=== PATIENT | male | born 1930 | race Caucasian/White ===

== ENCOUNTER 2019-04-21 08:50 | Inpatient (IN) | payer MEDICARE, MEDICAID ==
[~2019-04-21] VITALS: Ht 165.1 cm; Wt 49.1 kg
[2019-04-21 09:31] LABS: BASOPHILS % (AUTO) 0.1 % (0.0-2.0); EOSINOPHILS % (AUTO) 0 % (1.0-6.0); HEMATOCRIT 37.2 % (41-53); HEMOGLOBIN 12.2 g/dL (13.5-17.5); LYMPHOCYTES # (AUTO) 0.6 K/uL (1.0-4.8); LYMPHOCYTES % (AUTO) 2.2 % (22.0-44.0); MEAN CORPUSCULAR HEMOGLOBIN 32.8 pg (26.0-34.0); MEAN CORPUSCULAR HGB CONC 32.8 G/dL (31.0-37.0); MEAN CORPUSCULAR VOLUME 100 fL (80-100); MONOCYTES # (AUTO) 0.7 K/uL (0.1-1.0); MONOCYTES % (AUTO) 2.4 % (2.0-9.0); NEUTROPHILS # (AUTO) 26.6 K/uL (1.8-7.7); PLATELET COUNT (AUTO) 101 K/uL (150-450); RED BLOOD CELL COUNT(AUTO) 3.72 MIL/uL (4.50-5.90); RED CELL DISTRIBUTION WIDTH 14.5 % (11.5-14.5)
[2019-04-21 09:36] LABS: NEUTROPHILS % (AUTO) 95.3 % (40.0-70.0)
[2019-04-21 09:49] LABS: INR 1.4 (0.9-1.1); LACTIC ACID 1.8 mmol/L (0.4-2.0); PROTHROMBIN TIME 14.1 SEC (9.4-11.6)
[2019-04-21 09:58] LABS: ALBUMIN 2.2 g/dL (3.4-5.0); BILIRUBIN,TOTAL 0.7 mg/dL (0.1-1.0); CALCIUM, TOTAL 10.8 mg/dL (8.8-10.5); CREATININE 5.41 mg/dL (0.60-1.30); POTASSIUM 4.8 mmol/L (3.5-5.1); TOTAL PROTEIN, SERUM 8.6 g/dL (6.4-8.2)
[2019-04-21 10:02] LABS: INFLUENZA TYPE A NEGATIVE FOR TYPE A (NEGATIVE); INFLUENZA TYPE B NEGATIVE FOR TYPE B (NEGATIVE)
[2019-04-21] MEDS ORDERED: PIPERACILLIN SODIUM/TAZOBACTAM 4.5 GM in DEXTROSE 5%-WATER 100 ML IV ONE (10:15)
[2019-04-21] MEDS ORDERED: SODIUM CHLORIDE 0.9% 2,050 ML IV ONE (10:15)
[2019-04-21] MEDS ORDERED: VANCOMYCIN HCL 1 GM/D5% WATER 200 ML IV ONE (10:15)
[2019-04-21] MEDS ORDERED: ACETAMINOPHEN 325 MG TABLET PO PRN (11:00)
[2019-04-21] MEDS ORDERED: VANCOMYCIN HCL 1 GM/D5% WATER 200 ML IV PRN (11:15)
[2019-04-21 11:59] LABS: INR 1.4 (0.9-1.1); PROTHROMBIN TIME 14.6 SEC (9.4-11.6)
[2019-04-21 16:55] VITALS: BP 129/79
[2019-04-21] MEDS: PIPERACILLIN SODIUM/TAZOBACTAM 2.25 GM in DEXTROSE 5%-WATER 50 ML IV SCH ×2 (18:14→22:18)
[2019-04-21 19:30] VITALS: BP 124/68
[2019-04-21] MEDS: DOCUSATE SODIUM 100 MG CAPSULE PO SCH (21:54)
[2019-04-21] MEDS: SODIUM CHLORIDE 0.9% 1,000 ML IV SCH (22:17)
[2019-04-22 00:11] VITALS: BP 100/61
[2019-04-22] MEDS: PIPERACILLIN SODIUM/TAZOBACTAM 2.25 GM in DEXTROSE 5%-WATER 50 ML IV SCH ×3 (05:05→16:02)
[2019-04-22 05:34] VITALS: BP 101/87
[2019-04-22 07:20] LABS: BASOPHILS % (AUTO) 0.1 % (0.0-2.0); EOSINOPHILS % (AUTO) 0 % (1.0-6.0); HEMATOCRIT 32.7 % (41-53); HEMOGLOBIN 10.7 g/dL (13.5-17.5); LYMPHOCYTES # (AUTO) 0.4 K/uL (1.0-4.8); LYMPHOCYTES % (AUTO) 1.5 % (22.0-44.0); MEAN CORPUSCULAR HEMOGLOBIN 32.3 pg (26.0-34.0); MEAN CORPUSCULAR HGB CONC 32.6 G/dL (31.0-37.0); MEAN CORPUSCULAR VOLUME 99 fL (80-100); MONOCYTES # (AUTO) 0.8 K/uL (0.1-1.0); MONOCYTES % (AUTO) 2.7 % (2.0-9.0); PLATELET COUNT (AUTO) 103 K/uL (150-450); RED CELL DISTRIBUTION WIDTH 14.4 % (11.5-14.5)
[2019-04-22 07:21] LABS: NEUTROPHILS % (AUTO) 95.7 % (40.0-70.0)
[2019-04-22 07:50] LABS: CALCIUM, TOTAL 10.3 mg/dL (8.8-10.5); CREATININE 5.14 mg/dL (0.60-1.30); MAGNESIUM 2.8 mg/dL (1.80-2.40); PHOSPHORUS 5.3 mg/dL (2.5-4.9); POTASSIUM 4.2 mmol/L (3.5-5.1)
[2019-04-22] MEDS: DOCUSATE SODIUM 100 MG CAPSULE PO SCH ×2 (08:30→21:40)
[2019-04-22] MEDS: FAMOTIDINE 20 MG TABLET PO SCH (08:30)
[2019-04-22] MEDS: SODIUM CHLORIDE 0.9% 1,000 ML IV SCH (08:30)
[2019-04-22 08:44] VITALS: BP 100/70
[2019-04-22 09:20] LABS: APPEARANCE,URINE CLOUDY (CLEAR); BILIRUBIN,URINE NEGATIVE (NEGATIVE); GLUCOSE, URINE (UA) NEGATIVE (NEGATIVE); KETONES,URINE NEGATIVE (NEGATIVE); LEUKOCYTE ESTERASE ,URINE LARGE (NEGATIVE); NITRATE,URINE NEGATIVE (NEGATIVE); OCCULT BLOOD,URINE LARGE (NEGATIVE); PH,URINE 5.5 (5.0-8.0); PROTEIN,URINE TRACE (NEGATIVE); UROBILINOGEN,URINE 0.2 mg/dL (<=1.0)
[2019-04-22 09:22] LABS: CREATININE,URINE RANDOM 54.4 mg/dL (30.0-125.0); SODIUM,URINE RANDOM 26 mmol/l (20-110); UREA NITROGEN,URINE RANDOM 657 mg/dL (350-1000)
[2019-04-22 09:43] LABS: BACTERIA,URINE Few /HPF (None Seen); RBC,URINE 51-100 /HPF (0-2); SQUAMOUS EPITHELIAL CELL,UR None Seen /LPF (None Seen); WBC,URINE 51-100 /HPF (0-5)
[2019-04-22] MEDS ORDERED: VANCOMYCIN HCL 1 GM/D5% WATER 200 ML IV ONE (10:00)
[2019-04-22] MEDS: TAMSULOSIN HCL 0.4 MG CAPSULE PO SCH ×2 (10:30→21:40)
[2019-04-22 12:01] VITALS: BP 98/53
[2019-04-22] MEDS: HEPARIN SODIUM 25000 UNITS/D5W 250 ML IV PRN (12:12)
[2019-04-22] MEDS: HEPARIN SODIUM,PORCINE 5,000 UNITS/ML VIAL IVP PRN (12:13)
[2019-04-22] MEDS: SODIUM BICARBONATE 75 MEQ in DEXTROSE 5%-WATER 1,000 ML IV SCH (16:06)
[2019-04-22 16:26] VITALS: BP 100/58
[2019-04-22 20:18] VITALS: BP 142/62
[2019-04-23] VITALS (7 sets, daily range): BP systolic 96–130; BP diastolic 54–71
[2019-04-23] MEDS ORDERED: ADENOSINE 3 MG/ML 2 ML VIAL IVP ONE ×2 (02:30)
[2019-04-23] MEDS: PIPERACILLIN SODIUM/TAZOBACTAM 2.25 GM in DEXTROSE 5%-WATER 50 ML IV SCH ×2 (05:16→05:17)
[2019-04-23] MEDS: SODIUM BICARBONATE 75 MEQ in DEXTROSE 5%-WATER 1,000 ML IV SCH (06:51)
[2019-04-23 08:08] LABS: BASOPHILS % (AUTO) 0.2 % (0.0-2.0); EOSINOPHILS % (AUTO) 0.6 % (1.0-6.0); HEMATOCRIT 30.1 % (41-53); LYMPHOCYTES # (AUTO) 1.2 K/uL (1.0-4.8); LYMPHOCYTES % (AUTO) 7.1 % (22.0-44.0); MEAN CORPUSCULAR HEMOGLOBIN 32.8 pg (26.0-34.0); MEAN CORPUSCULAR HGB CONC 33.2 G/dL (31.0-37.0); MEAN CORPUSCULAR VOLUME 99 fL (80-100); MONOCYTES % (AUTO) 5.8 % (2.0-9.0); NEUTROPHILS # (AUTO) 14.6 K/uL (1.8-7.7); PLATELET COUNT (AUTO) 129 K/uL (150-450); RED BLOOD CELL COUNT(AUTO) 3.04 MIL/uL (4.50-5.90); RED CELL DISTRIBUTION WIDTH 14.4 % (11.5-14.5)
[2019-04-23 08:17] LABS: NEUTROPHILS % (AUTO) 86.3 % (40.0-70.0)
[2019-04-23] MEDS: DOCUSATE SODIUM 100 MG CAPSULE PO SCH ×2 (09:00→21:00)
[2019-04-23] MEDS: TAMSULOSIN HCL 0.4 MG CAPSULE PO SCH ×2 (09:00→21:00)
[2019-04-23] MEDS: FAMOTIDINE 20 MG TABLET PO SCH (09:00)
[2019-04-23 09:23] LABS: ALBUMIN 1.6 g/dL (3.4-5.0); BILIRUBIN,TOTAL 0.3 mg/dL (0.1-1.0); CALCIUM, TOTAL 10.7 mg/dL (8.8-10.5); CREATININE 1.72 mg/dL (0.60-1.30); FREE T4 (FREE THYROXINE) 1.29 ng/dL (0.76-1.46); MAGNESIUM 2.6 mg/dL (1.80-2.40); PHOSPHORUS 3.2 mg/dL (2.5-4.9); POTASSIUM 3.4 mmol/L (3.5-5.1); THYROID STIMULATING HORMONE 1.93 uIU/mL (0.36-3.74); TOTAL PROTEIN, SERUM 6.8 g/dL (6.4-8.2); VANCOMYCIN,RANDOM 12.2 mcg/mL (25.0-50.0)
[2019-04-23] MEDS ORDERED: *CLINICAL-LEVOFLOXACIN IVPB DOSING CLINICAL ONE (10:45)
[2019-04-23] MEDS ORDERED: SODIUM CHLORIDE 0.9% 250 ML IV ONE (12:45)
[2019-04-23] MEDS: LEVOFLOXACIN 250 MG/D5% WATER 50 ML IV SCH (12:48)
[2019-04-23] MEDS: DEXTROSE 5%-0.45% SODIUM CHL 1,000 ML IV SCH (13:36)
[2019-04-23] MEDS: HEPARIN SODIUM 25000 UNITS/D5W 250 ML IV PRN (13:40)
[2019-04-23] MEDS ORDERED: POTASSIUM CHL 10 MEQ/WATER 50 ML IV ONE (15:00)
[2019-04-24 03:57] VITALS: BP 123/89
[2019-04-24] MEDS: DEXTROSE 5%-0.45% SODIUM CHL 1,000 ML IV SCH (05:44)
[2019-04-24 08:19] LABS: BASOPHILS % (AUTO) 0.1 % (0.0-2.0); EOSINOPHILS % (AUTO) 2.3 % (1.0-6.0); HEMATOCRIT 31.7 % (41-53); HEMOGLOBIN 10.6 g/dL (13.5-17.5); LYMPHOCYTES # (AUTO) 1.5 K/uL (1.0-4.8); LYMPHOCYTES % (AUTO) 12.9 % (22.0-44.0); MEAN CORPUSCULAR HEMOGLOBIN 33.3 pg (26.0-34.0); MEAN CORPUSCULAR HGB CONC 33.3 G/dL (31.0-37.0); MEAN CORPUSCULAR VOLUME 100 fL (80-100); MONOCYTES # (AUTO) 0.7 K/uL (0.1-1.0); MONOCYTES % (AUTO) 6.2 % (2.0-9.0); NEUTROPHILS # (AUTO) 9.2 K/uL (1.8-7.7); NEUTROPHILS % (AUTO) 78.5 % (40.0-70.0); PLATELET COUNT (AUTO) 166 K/uL (150-450); RED BLOOD CELL COUNT(AUTO) 3.17 MIL/uL (4.50-5.90); RED CELL DISTRIBUTION WIDTH 14.9 % (11.5-14.5)
[2019-04-24 08:43] LABS: CALCIUM, TOTAL 10.4 mg/dL (8.8-10.5); CREATININE 1.15 mg/dL (0.60-1.30); MAGNESIUM 2.1 mg/dL (1.80-2.40); PHOSPHORUS 1.8 mg/dL (2.5-4.9)
[2019-04-24 08:47] VITALS: BP 115/59
[2019-04-24] MEDS: FAMOTIDINE 20 MG TABLET PO SCH (09:00)
[2019-04-24] MEDS: DOCUSATE SODIUM 100 MG CAPSULE PO SCH ×2 (09:00→21:00)
[2019-04-24] MEDS: TAMSULOSIN HCL 0.4 MG CAPSULE PO SCH ×2 (09:00→21:00)
[2019-04-24 09:05] LABS: POTASSIUM 2.7 mmol/L (3.5-5.1)
[2019-04-24] MEDS ORDERED: POTASSIUM CHLORIDE 20 MEQ ER TABLET PO ONE (09:15)
[2019-04-24] MEDS: POTASSIUM CHL 10 MEQ/WATER 50 ML IV SCH ×3 (10:11→22:50)
[2019-04-24] MEDS: LEVOFLOXACIN 250 MG/D5% WATER 50 ML IV SCH (10:11)
[2019-04-24] MEDS: DEXTROSE 5%-WATER 1,000 ML IV SCH ×2 (10:45→20:51)
[2019-04-24 12:35] VITALS: BP 136/59
[2019-04-24 15:24] VITALS: BP 134/68
[2019-04-24 22:00] LABS: ANION GAP 8 mmol/L (8-16); CALCIUM, TOTAL 10.2 mg/dL (8.8-10.5); CARBON DIOXIDE 28 mmol/L (22-29); CHLORIDE 121 mmol/L (98-107); GLUCOSE,RANDOM 109 mg/dL (70-110); PHOSPHORUS 2.3 mg/dL (2.5-4.9); SODIUM SERUM 157 mmol/L (136-145); UREA NITROGEN, BLOOD 29 mg/dL (7-18)
[2019-04-24 22:04] LABS: GLOMERULAR FILTR. RATE CALC > 60 mL/min (>60); POTASSIUM 2.9 mmol/L (3.5-5.1)
[2019-04-24 22:18] VITALS: BP 126/70
[2019-04-25 00:44] VITALS: BP 129/70
[2019-04-25] MEDS: POTASSIUM CHL 10 MEQ/WATER 50 ML IV SCH ×5 (02:30→11:26)
[2019-04-25] MEDS: DEXTROSE 5%-WATER 1,000 ML IV SCH ×3 (02:52→18:53)
[2019-04-25 05:34] VITALS: BP 139/87
[2019-04-25 06:52] LABS: BASOPHILS % (AUTO) 0.1 % (0.0-2.0); EOSINOPHILS % (AUTO) 3.7 % (1.0-6.0); HEMATOCRIT 31.1 % (41-53); HEMOGLOBIN 10.2 g/dL (13.5-17.5); LYMPHOCYTES # (AUTO) 1.6 K/uL (1.0-4.8); LYMPHOCYTES % (AUTO) 12.9 % (22.0-44.0); MEAN CORPUSCULAR HEMOGLOBIN 32.7 pg (26.0-34.0); MEAN CORPUSCULAR HGB CONC 32.6 G/dL (31.0-37.0); MEAN CORPUSCULAR VOLUME 100 fL (80-100); MONOCYTES # (AUTO) 0.8 K/uL (0.1-1.0); MONOCYTES % (AUTO) 6.4 % (2.0-9.0); NEUTROPHILS # (AUTO) 9.8 K/uL (1.8-7.7); NEUTROPHILS % (AUTO) 76.9 % (40.0-70.0); PLATELET COUNT (AUTO) 184 K/uL (150-450); RED CELL DISTRIBUTION WIDTH 15.1 % (11.5-14.5)
[2019-04-25 07:19] LABS: CHLORIDE 125 mmol/L (98-107); POTASSIUM 3.2 mmol/L (3.5-5.1); SODIUM SERUM 157 mmol/L (136-145)
[2019-04-25 07:29] LABS: B-TYPE NATRIURETIC PEPTIDE 284 pg/mL (0-100)
[2019-04-25 07:31] LABS: ANION GAP 2 mmol/L (8-16); CALCIUM, TOTAL 10.1 mg/dL (8.8-10.5); CARBON DIOXIDE 30 mmol/L (22-29); CREATININE 1.07 mg/dL (0.60-1.30); GLOMERULAR FILTR. RATE CALC > 60 mL/min (>60); GLUCOSE,RANDOM 107 mg/dL (70-110); PHOSPHORUS 2.2 mg/dL (2.5-4.9); UREA NITROGEN, BLOOD 28 mg/dL (7-18)
[2019-04-25 07:45] VITALS: BP 137/91
[2019-04-25] MEDS ORDERED: POTASSIUM PHOS,M-BASIC-D-BASIC 20 MEQ in DEXTROSE 5%-WATER 100 ML IV ONE (08:15)
[2019-04-25] MEDS: DOCUSATE SODIUM 100 MG CAPSULE PO SCH ×2 (09:00→20:29)
[2019-04-25] MEDS: FAMOTIDINE 20 MG TABLET PO SCH (09:00)
[2019-04-25] MEDS: TAMSULOSIN HCL 0.4 MG CAPSULE PO SCH ×2 (09:00→20:30)
[2019-04-25] MEDS: LEVOFLOXACIN 250 MG/D5% WATER 50 ML IV SCH (10:07)
[2019-04-25] MEDS: THIAMINE HCL 100 MG/ML 2ML VIAL IVP SCH (12:33)
[2019-04-25 12:56] VITALS: BP 115/82
[2019-04-25 15:55] VITALS: BP 127/81
[2019-04-25 16:16] LABS: ANION GAP 8 mmol/L (8-16); CALCIUM, TOTAL 9.8 mg/dL (8.8-10.5); CARBON DIOXIDE 28 mmol/L (22-29); CHLORIDE 123 mmol/L (98-107); CREATININE 1.03 mg/dL (0.60-1.30); GLUCOSE,RANDOM 109 mg/dL (70-110); PHOSPHORUS 3.1 mg/dL (2.5-4.9); POTASSIUM 3.7 mmol/L (3.5-5.1); SODIUM SERUM 159 mmol/L (136-145); UREA NITROGEN, BLOOD 25 mg/dL (7-18)
[2019-04-25 16:17] LABS: GLOMERULAR FILTR. RATE CALC > 60 mL/min (>60)
[2019-04-25 19:50] VITALS: BP 118/70
[2019-04-25 22:01] LABS: ANION GAP 5 mmol/L (8-16); CALCIUM, TOTAL 9.5 mg/dL (8.8-10.5); CARBON DIOXIDE 30 mmol/L (22-29); CHLORIDE 121 mmol/L (98-107); CREATININE 1.08 mg/dL (0.60-1.30); GLOMERULAR FILTR. RATE CALC > 60 mL/min (>60); GLUCOSE,RANDOM 85 mg/dL (70-110); POTASSIUM 3.2 mmol/L (3.5-5.1); SODIUM SERUM 156 mmol/L (136-145); UREA NITROGEN, BLOOD 22 mg/dL (7-18)
[2019-04-26 00:20] VITALS: BP 104/76
[2019-04-26] MEDS: DEXTROSE 5%-WATER 1,000 ML IV SCH ×3 (02:35→21:33)
[2019-04-26 04:30] VITALS: BP 120/69
[2019-04-26 07:04] LABS: ANION GAP 3 mmol/L (8-16); CALCIUM, TOTAL 9.3 mg/dL (8.8-10.5); CARBON DIOXIDE 33 mmol/L (22-29); CHLORIDE 117 mmol/L (98-107); CREATININE 0.97 mg/dL (0.60-1.30); GLUCOSE,RANDOM 89 mg/dL (70-110); PHOSPHORUS 2.9 mg/dL (2.5-4.9); POTASSIUM 3.3 mmol/L (3.5-5.1); SODIUM SERUM 153 mmol/L (136-145); UREA NITROGEN, BLOOD 19 mg/dL (7-18)
[2019-04-26 07:08] LABS: GLOMERULAR FILTR. RATE CALC > 60 mL/min (>60)
[2019-04-26 08:50] VITALS: BP 123/68
[2019-04-26] MEDS: DOCUSATE SODIUM 100 MG CAPSULE PO SCH ×2 (09:00→21:00)
[2019-04-26] MEDS: TAMSULOSIN HCL 0.4 MG CAPSULE PO SCH ×2 (09:00→21:00)
[2019-04-26] MEDS: FAMOTIDINE 20 MG TABLET PO SCH (09:00)
[2019-04-26] MEDS: THIAMINE HCL 100 MG/ML 2ML VIAL IVP SCH (09:02)
[2019-04-26] MEDS: HEPARIN SODIUM,PORCINE 5,000 UNITS/ML VIAL IVP PRN (10:16)
[2019-04-26] MEDS ORDERED: MAGNESIUM SULFATE 3 GM in DEXTROSE 5%-WATER 100 ML IV ONE (11:30)
[2019-04-26] MEDS: LEVOFLOXACIN 250 MG/D5% WATER 50 ML IV SCH (11:35)
[2019-04-26 12:00] VITALS: BP 126/70
[2019-04-26] MEDS: POTASSIUM CHL 10 MEQ/WATER 50 ML IV SCH ×4 (12:24→15:45)
[2019-04-26] MEDS: HEPARIN SODIUM 25000 UNITS/D5W 250 ML IV PRN (15:46)
[2019-04-26 15:52] VITALS: BP 109/68
[2019-04-26 20:38] VITALS: BP 137/71
[2019-04-27] VITALS (7 sets, daily range): BP systolic 106–129; BP diastolic 54–69
[2019-04-27] MEDS: DEXTROSE 5%-WATER 1,000 ML IV SCH (08:34)
[2019-04-27] MEDS: THIAMINE HCL 100 MG/ML 2ML VIAL IVP SCH (08:34)
[2019-04-27] MEDS: FAMOTIDINE 20 MG TABLET PO SCH (09:00)
[2019-04-27] MEDS: TAMSULOSIN HCL 0.4 MG CAPSULE PO SCH ×2 (09:00→21:00)
[2019-04-27] MEDS: DOCUSATE SODIUM 100 MG CAPSULE PO SCH ×2 (09:00→21:00)
[2019-04-27] MEDS: LEVOFLOXACIN 250 MG/D5% WATER 50 ML IV SCH (11:00)
[2019-04-27 12:14] LABS: BASOPHILS % (AUTO) 0.4 % (0.0-2.0); EOSINOPHILS % (AUTO) 6.1 % (1.0-6.0); HEMATOCRIT 33.9 % (41-53); HEMOGLOBIN 11.1 g/dL (13.5-17.5); LYMPHOCYTES # (AUTO) 1.7 K/uL (1.0-4.8); LYMPHOCYTES % (AUTO) 13.1 % (22.0-44.0); MEAN CORPUSCULAR HEMOGLOBIN 32.7 pg (26.0-34.0); MEAN CORPUSCULAR HGB CONC 32.7 G/dL (31.0-37.0); MEAN CORPUSCULAR VOLUME 100 fL (80-100); MONOCYTES # (AUTO) 0.4 K/uL (0.1-1.0); MONOCYTES % (AUTO) 3.5 % (2.0-9.0); NEUTROPHILS # (AUTO) 9.8 K/uL (1.8-7.7); NEUTROPHILS % (AUTO) 76.9 % (40.0-70.0); PLATELET COUNT (AUTO) 165 K/uL (150-450); RED BLOOD CELL COUNT(AUTO) 3.39 MIL/uL (4.50-5.90); RED CELL DISTRIBUTION WIDTH 15.2 % (11.5-14.5)
[2019-04-27 12:35] LABS: ANION GAP 6 mmol/L (8-16); CALCIUM, TOTAL 9.5 mg/dL (8.8-10.5); CARBON DIOXIDE 28 mmol/L (22-29); CHLORIDE 107 mmol/L (98-107); GLUCOSE,RANDOM 90 mg/dL (70-110); PHOSPHORUS 2.7 mg/dL (2.5-4.9); POTASSIUM 3.1 mmol/L (3.5-5.1); SODIUM SERUM 141 mmol/L (136-145); UREA NITROGEN, BLOOD 14 mg/dL (7-18)
[2019-04-27 12:36] LABS: GLOMERULAR FILTR. RATE CALC > 60 mL/min (>60)
[2019-04-27] MEDS ORDERED: POTASSIUM CHLORIDE 20 MEQ ER TABLET PO PRN (13:00)
[2019-04-27] MEDS: SODIUM CHLORIDE 0.9% 1,000 ML IV SCH (13:36)
[2019-04-27] MEDS: POTASSIUM CHL 10 MEQ/WATER 50 ML IV PRN ×6 (13:41→23:50)
[2019-04-27] MEDS: HEPARIN SODIUM,PORCINE 5,000 UNITS/ML VIAL IVP PRN (13:56)
[2019-04-27] MEDS: HEPARIN SODIUM 25000 UNITS/D5W 250 ML IV PRN ×2 (19:59→21:12)
[2019-04-28 04:21] VITALS: BP 113/73
[2019-04-28] MEDS: HEPARIN SODIUM 25000 UNITS/D5W 250 ML IV PRN ×2 (05:03→23:21)
[2019-04-28] MEDS: POTASSIUM CHL 10 MEQ/WATER 50 ML IV PRN ×2 (05:04→06:04)
[2019-04-28] MEDS: SODIUM CHLORIDE 0.9% 1,000 ML IV SCH (05:31)
[2019-04-28 08:46] VITALS: BP 144/59
[2019-04-28] MEDS: FAMOTIDINE 20 MG TABLET PO SCH (09:12)
[2019-04-28] MEDS: THIAMINE HCL 100 MG/ML 2ML VIAL IVP SCH (09:12)
[2019-04-28] MEDS: TAMSULOSIN HCL 0.4 MG CAPSULE PO SCH ×2 (09:12→21:03)
[2019-04-28] MEDS: DOCUSATE SODIUM 100 MG CAPSULE PO SCH ×2 (09:12→21:03)
[2019-04-28 11:37] LABS: BASOPHILS % (AUTO) 0.6 % (0.0-2.0); EOSINOPHILS % (AUTO) 3.5 % (1.0-6.0); HEMATOCRIT 35.4 % (41-53); HEMOGLOBIN 11.4 g/dL (13.5-17.5); LYMPHOCYTES # (AUTO) 1.4 K/uL (1.0-4.8); LYMPHOCYTES % (AUTO) 11.9 % (22.0-44.0); MEAN CORPUSCULAR HEMOGLOBIN 31.8 pg (26.0-34.0); MEAN CORPUSCULAR VOLUME 99 fL (80-100); MONOCYTES # (AUTO) 0.4 K/uL (0.1-1.0); MONOCYTES % (AUTO) 3.5 % (2.0-9.0); NEUTROPHILS # (AUTO) 9.4 K/uL (1.8-7.7); NEUTROPHILS % (AUTO) 80.5 % (40.0-70.0); PLATELET COUNT (AUTO) 199 K/uL (150-450); RED BLOOD CELL COUNT(AUTO) 3.57 MIL/uL (4.50-5.90); RED CELL DISTRIBUTION WIDTH 15.1 % (11.5-14.5)
[2019-04-28 11:47] VITALS: BP 118/75
[2019-04-28] MEDS ORDERED: LEVOFLOXACIN 250 MG TABLET PO SCH (12:30)
[2019-04-28 16:15] VITALS: BP 102/65
[2019-04-28 20:22] VITALS: BP 104/66
[2019-04-28] MEDS: HEPARIN SODIUM,PORCINE 5,000 UNITS/ML VIAL IVP PRN (23:22)
[2019-04-29] VITALS (7 sets, daily range): BP systolic 99–115; BP diastolic 54–76
[2019-04-29] MEDS: SODIUM CHLORIDE 0.9% 1,000 ML IV SCH (06:30)
[2019-04-29] MEDS: THIAMINE HCL 100 MG/ML 2ML VIAL IVP SCH (09:25)
[2019-04-29] MEDS: DOCUSATE SODIUM 100 MG CAPSULE PO SCH ×2 (09:25→20:14)
[2019-04-29] MEDS: FAMOTIDINE 20 MG TABLET PO SCH (09:25)
[2019-04-29] MEDS: TAMSULOSIN HCL 0.4 MG CAPSULE PO SCH ×2 (09:25→20:14)
[2019-04-29 11:30] LABS: ANION GAP 4 mmol/L (8-16); CALCIUM, TOTAL 9.1 mg/dL (8.8-10.5); CARBON DIOXIDE 29 mmol/L (22-29); CHLORIDE 111 mmol/L (98-107); GLUCOSE,RANDOM 127 mg/dL (70-110); POTASSIUM 3.8 mmol/L (3.5-5.1); SODIUM SERUM 144 mmol/L (136-145); UREA NITROGEN, BLOOD 16 mg/dL (7-18)
[2019-04-29 11:37] LABS: GLOMERULAR FILTR. RATE CALC > 60 mL/min (>60)
[2019-04-29] MEDS: NYSTATIN 500,000 UNITS/5 ML SUSPENSION UDCUP PO SCH ×2 (18:30→23:59)
[2019-04-30 03:15] VITALS: BP 99/64
[2019-04-30] MEDS: HEPARIN SODIUM 25000 UNITS/D5W 250 ML IV PRN (06:09)
[2019-04-30] MEDS: NYSTATIN 500,000 UNITS/5 ML SUSPENSION UDCUP PO SCH ×3 (06:11→17:40)
[2019-04-30 07:01] LABS: BASOPHILS % (AUTO) 0.5 % (0.0-2.0); EOSINOPHILS % (AUTO) 2.7 % (1.0-6.0); HEMATOCRIT 30.5 % (41-53); HEMOGLOBIN 10.1 g/dL (13.5-17.5); LYMPHOCYTES # (AUTO) 1.5 K/uL (1.0-4.8); LYMPHOCYTES % (AUTO) 13.7 % (22.0-44.0); MEAN CORPUSCULAR HEMOGLOBIN 32.8 pg (26.0-34.0); MEAN CORPUSCULAR HGB CONC 33.1 G/dL (31.0-37.0); MEAN CORPUSCULAR VOLUME 99 fL (80-100); MONOCYTES # (AUTO) 0.5 K/uL (0.1-1.0); MONOCYTES % (AUTO) 4.6 % (2.0-9.0); NEUTROPHILS # (AUTO) 8.7 K/uL (1.8-7.7); NEUTROPHILS % (AUTO) 78.5 % (40.0-70.0); PLATELET COUNT (AUTO) 186 K/uL (150-450); RED BLOOD CELL COUNT(AUTO) 3.08 MIL/uL (4.50-5.90); RED CELL DISTRIBUTION WIDTH 15.3 % (11.5-14.5)
[2019-04-30 07:26] LABS: ANION GAP 3 mmol/L (8-16); CALCIUM, TOTAL 9.3 mg/dL (8.8-10.5); CARBON DIOXIDE 31 mmol/L (22-29); CHLORIDE 112 mmol/L (98-107); CREATININE 0.87 mg/dL (0.60-1.30); GLUCOSE,RANDOM 93 mg/dL (70-110); POTASSIUM 3.3 mmol/L (3.5-5.1); SODIUM SERUM 146 mmol/L (136-145); UREA NITROGEN, BLOOD 13 mg/dL (7-18)
[2019-04-30 07:27] LABS: GLOMERULAR FILTR. RATE CALC > 60 mL/min (>60)
[2019-04-30] MEDS: HEPARIN SODIUM,PORCINE 5,000 UNITS/ML VIAL IVP PRN (07:28)
[2019-04-30 07:58] VITALS: BP 120/61
[2019-04-30] MEDS: THIAMINE HCL 100 MG/ML 2ML VIAL IVP SCH (08:27)
[2019-04-30] MEDS: FAMOTIDINE 20 MG TABLET PO SCH (08:28)
[2019-04-30] MEDS: TAMSULOSIN HCL 0.4 MG CAPSULE PO SCH (08:28)
[2019-04-30] MEDS: DOCUSATE SODIUM 100 MG CAPSULE PO SCH (08:33)
[2019-04-30] MEDS ORDERED: LEVOFLOXACIN 750 MG TABLET PO SCH (09:00)
[2019-04-30] MEDS ORDERED: APIXABAN 5 MG TABLET PO SCH (10:15)
[2019-04-30 11:05] VITALS: BP 114/77
[2019-04-30] MEDS ORDERED: DOCU-275 PO (13:22)
[2019-04-30] MEDS ORDERED: APIX5TAB PO (13:22)
[2019-04-30] MEDS ORDERED: FAMO20 PO (13:23)
[2019-04-30] MEDS ORDERED: NYST100026 PO (13:23)
[2019-04-30] MEDS ORDERED: TAMS-13 PO (13:24)
[2019-04-30] MEDS ORDERED: THIA1002I IM (13:24)
[2019-04-30] MEDS ORDERED: ACET-66 PO (13:25)
[2019-04-30 15:59] VITALS: BP 111/74
== END 2019-04-30 19:00 | DRG 871 ==
LOC: EMS 08:53 → 5S 15:14 → UNDOADMIN 16:15 → 5S 16:15 → 5N 04-22 19:20
PROVIDERS: ADMIT Internal Medicine; ATTEND Internal Medicine
DX: A41.9 Sepsis, unspecified organism (principal); E43 Unspecified severe protein-calorie malnutrition; G92 Toxic encephalopathy; J18.9 Pneumonia, unspecified organism; N17.9 Acute kidney failure, unspecified; N39.0 Urinary tract infection, site not specified; Z68.1 Body mass index [BMI] 19.9 or less, adult; I82.402 Acute embolism and thrombosis of unspecified deep veins of left lower extremity; N13.30 Unspecified hydronephrosis; E87.3 Alkalosis; E87.0 Hyperosmolality and hypernatremia; B37.0 Candidal stomatitis; J96.11 Chronic respiratory failure with hypoxia; N18.9 Chronic kidney disease, unspecified; N13.9 Obstructive and reflux uropathy, unspecified; R33.9 Retention of urine, unspecified; E86.0 Dehydration; E87.6 Hypokalemia; Z99.81 Dependence on supplemental oxygen
CPT/HCPCS: 70450; 71250; 72192; 74150; 76770; 82570; 83605; 83735; 84100; 84132; 84145; 84300; 84439; 84443; 84540; 87040; 87086; 87635; 87804; 92610; 93005; 93970; 99291; J0153; J1644; J1956; J2543; J3370; J3411; J3475; J3480; J3490; J7030; J7050; J7060

== ENCOUNTER → 2020-04-13 | Outpatient (CLI) | payer MEDICARE ==
[~2020-04-13] MED LIST: ACET-3385 PO; APIX5TAB PO; DOCU-275 PO; FAMO20 PO; NYST100033 PO; TAMS-13 PO; THIA1002I IM
== END | disposition home or self-care (01) ==
LOC: RADPV 09:39
PROVIDERS: ATTEND Internal Medicine
DX: I35.1 Nonrheumatic aortic (valve) insufficiency (principal); I48.91 Unspecified atrial fibrillation
CPT/HCPCS: 93306